=== PATIENT | male | born 1955 ===

== ENCOUNTER 2022-04-11 00:44 | Inpatient (IN) ==
[2022-04-11] MEDS ORDERED: Lactated Ringers 1000 ml BAG 1,000 ML IV ONE (03:55)
[2022-04-11 05:40] LABS: ABS Lymphocytes 2.5 10^3/ul (1.0-4.8); ABS Monocytes 0.9 10^3/ul (0-0.8); ABS Neutrophils 7.8 10^3/ul (1.5-7.7); Eosinophil % 0.1 %; Hematocrit 43 % (42-52); Hemoglobin 14.2 g/dL (14.0-18.0); Lymphocyte % 22.4 %; Mean Corpuscular HGB Conc 33 g/dL (31-36); Mean Corpuscular Hemoglobin 30 pg (27-31); Mean Corpuscular Volume 92 fL (80-94); Mean Platelet Volume 9.3 fL (7.4-10.4); Nucleated Red Blood Cells % 0.1; Platelet Count 153 10^3/uL (150-450); Red Blood Count 4.69 10^6 /uL (4.18-5.48); Red Cell Distribution Width 15 % (10-15); White Blood Count 11.2 10^3/uL (3.5-10.8)
[2022-04-11 06:08] LABS: Calcium 8.8 mg/dL (8.6-10.3); Magnesium 2.2 mg/dL (1.9-2.7); Potassium 4.1 mmol/L (3.5-5.0); eGFR CKD-EPI 22.3 (>60)
[2022-04-11] MEDS ORDERED: Heparin 5000 UNITS/ML 1 mL VIAL ONE (06:13)
[2022-04-11 06:20] LABS: TSH Ultra Thyroid Stim Horm 0.39 mcIU/mL (0.34-5.60)
[2022-04-11] MEDS ORDERED: Heparin 5000 UNITS/ML 1 mL VIAL IV SCH (07:00)
[2022-04-11] MEDS: Heparin DRIP 25,000 UNITS BAG 25,000 UNITS/500 ML BAG IV SCH (07:32)
[2022-04-11] MEDS: Aspirin EC 81 mg TAB.EC (enteric coated) PO SCH (08:17)
[2022-04-11] MEDS ORDERED: Heparin 5000 UNITS/ML 1 mL VIAL SUBCUT SCH (09:00)
[2022-04-11] MEDS ORDERED: .Amiodarone 24HR ONLY IV Protocol Order Note IV ONE (11:37)
[2022-04-11] MEDS ORDERED: Amiodarone 360 MG IVPREMIX 360 MG/200 ML BAG IV SCH (11:50)
[2022-04-11 12:54] LABS: Urine Appearance Clear; Urine Bilirubin Negative (Negative); Urine Blood Negative (Negative); Urine Color Yellow; Urine Glucose Negative (Negative); Urine Ketones Trace (Negative); Urine Nitrite Negative (Negative); Urine Protein Negative (Negative); Urine Specific Gravity 1.016 (1.002-1.030); Urine Urobilinogen Negative (Negative)
[2022-04-11 14:20] LABS: High Sensitivity Troponin 1 Hr 3386 pg/mL (<20)
[2022-04-11] MEDS: Heparin 5000 UNITS/ML 1 mL VIAL IV SCH ×2 (14:40→22:00)
[2022-04-11 14:44] LABS: Urine Creatinine Concentration 130.04 mg/dL
[2022-04-11] MEDS: Amiodarone 360 MG IVPREMIX 360 MG/200 ML BAG IV SCH (18:44)
[2022-04-12] MEDS: Heparin DRIP 25,000 UNITS BAG 25,000 UNITS/500 ML BAG IV SCH ×3 (01:01→19:35)
[2022-04-12 04:07] LABS: ABS Eosinophils 0.1 10^3/ul (0-0.6); ABS Lymphocytes 1.6 10^3/ul (1.0-4.8); ABS Monocytes 0.8 10^3/ul (0-0.8); ABS Neutrophils 6.8 10^3/ul (1.5-7.7); Hematocrit 40 % (42-52); Hemoglobin 13.6 g/dL (14.0-18.0); Lymphocyte % 16.9 %; Mean Corpuscular HGB Conc 34 g/dL (31-36); Mean Corpuscular Hemoglobin 31 pg (27-31); Mean Corpuscular Volume 91 fL (80-94); Mean Platelet Volume 8.9 fL (7.4-10.4); Nucleated Red Blood Cells % 0.1; Platelet Count 134 10^3/uL (150-450); Red Blood Count 4.42 10^6 /uL (4.18-5.48); Red Cell Distribution Width 15 % (10-15); White Blood Count 9.3 10^3/uL (3.5-10.8)
[2022-04-12 04:26] LABS: Calcium 8.1 mg/dL (8.6-10.3); HDL Cholesterol 25.5 mg/dL; Potassium 3.8 mmol/L (3.5-5.0); eGFR CKD-EPI 42.7 (>60)
[2022-04-12] MEDS: Amiodarone 360 MG IVPREMIX 360 MG/200 ML BAG IV SCH (06:31)
[2022-04-12] MEDS ORDERED: Potassium Chlor 20 meq TAB.ER PO ONE (07:11)
[2022-04-12] MEDS: Aspirin EC 81 mg TAB.EC (enteric coated) PO SCH (09:33)
[2022-04-12] MEDS: Heparin 5000 UNITS/ML 1 mL VIAL IV SCH (15:13)
[2022-04-13 05:46] LABS: ABS Eosinophils 0.2 10^3/ul (0-0.6); ABS Lymphocytes 1.6 10^3/ul (1.0-4.8); ABS Monocytes 0.6 10^3/ul (0-0.8); ABS Neutrophils 4.4 10^3/ul (1.5-7.7); Eosinophil % 3.2 %; Hematocrit 41 % (42-52); Hemoglobin 14.3 g/dL (14.0-18.0); Lymphocyte % 23.1 %; Mean Corpuscular HGB Conc 35 g/dL (31-36); Mean Corpuscular Hemoglobin 31 pg (27-31); Mean Corpuscular Volume 91 fL (80-94); Mean Platelet Volume 8.7 fL (7.4-10.4); Nucleated Red Blood Cells % 0.1; Platelet Count 130 10^3/uL (150-450); Red Blood Count 4.55 10^6 /uL (4.18-5.48); Red Cell Distribution Width 14 % (10-15); White Blood Count 6.9 10^3/uL (3.5-10.8)
[2022-04-13] MEDS ORDERED: Levothyroxine 100 MCG/5 ML VIAL IV SCH (06:00)
[2022-04-13 06:57] LABS: Calcium 8.4 mg/dL (8.6-10.3); Magnesium 2.1 mg/dL (1.9-2.7); eGFR CKD-EPI 49.4 (>60)
[2022-04-13] MEDS: Aspirin EC 81 mg TAB.EC (enteric coated) PO SCH ×2 (08:33→09:04)
[2022-04-13] MEDS ORDERED: Midazolam 5 mg/5 ml VIAL 1 mg/ml 5 ml VIAL (5 mg) ONE (10:02)
[2022-04-13] MEDS ORDERED: fentaNYL 100 mcg/2 ml 50 MCG/ML VIAL ONE (10:02)
[2022-04-13] MEDS ORDERED: Heparin 1,000 UNIT/ML 10 ml (10,000 UNITS) CATHLAB/DIALYSIS ONE (10:03)
[2022-04-13] MEDS ORDERED: Heparin 2 UNITS/ML 1000 mls 2,000 ML IV ONE (10:03)
[2022-04-13] MEDS ORDERED: VERAPAMIL 2.5 MG/ML 2 ML VIAL ** 5 mg/2 ml ONE (10:03)
[2022-04-13] MEDS ORDERED: Iohexol 350 (CONTRAST) 100 ML PAK IV ONE ×3 (10:03→11:42)
[2022-04-13] MEDS ORDERED: Lidocaine 1% MPF 5 ML VIAL ONE ×2 (10:03→10:57)
[2022-04-13] MEDS ORDERED: nitroGLYCERIN DRIP 25,000 MCG/250 ML BTL ONE (10:03)
[2022-04-13] MEDS ORDERED: Heparin 2 UNITS/ML 1000 mls 1,000 ML IV ONE (10:59)
[2022-04-13] MEDS ORDERED: Furosemide 20 mg/2 ml IV VIAL IV ONE (12:33)
[2022-04-14 05:11] LABS: ABS Eosinophils 0.2 10^3/ul (0-0.6); ABS Lymphocytes 1.7 10^3/ul (1.0-4.8); ABS Monocytes 0.8 10^3/ul (0-0.8); ABS Neutrophils 5.3 10^3/ul (1.5-7.7); Eosinophil % 2.7 %; Hematocrit 44 % (42-52); Hemoglobin 14.8 g/dL (14.0-18.0); Lymphocyte % 20.7 %; Mean Corpuscular HGB Conc 34 g/dL (31-36); Mean Corpuscular Hemoglobin 31 pg (27-31); Mean Corpuscular Volume 91 fL (80-94); Mean Platelet Volume 8.4 fL (7.4-10.4); Nucleated Red Blood Cells % 0.1; Platelet Count 156 10^3/uL (150-450); Red Cell Distribution Width 14 % (10-15); White Blood Count 8.1 10^3/uL (3.5-10.8)
[2022-04-14 05:17] LABS: INR 1.09 (0.89-1.11)
[2022-04-14 05:54] LABS: Calcium 8.4 mg/dL (8.6-10.3); HDL Cholesterol 26.7 mg/dL; Magnesium 2.1 mg/dL (1.9-2.7); Potassium 4.1 mmol/L (3.5-5.0); eGFR CKD-EPI 48.2 (>60)
[2022-04-14] MEDS: Aspirin EC 81 mg TAB.EC (enteric coated) PO SCH (07:58)
[2022-04-14] MEDS ORDERED: ceFAZolin VIAL 1 GM in NS 0.9% 50 ML 50 ML IVPB ONE (14:30)
[2022-04-14] MEDS ORDERED: NS 0.9% 1000 ml BAG 1,000 ML IV SCH (14:30)
[2022-04-14] MEDS ORDERED: ceFAZolin 2 GM PREMIX 2 GM/50 ML BAG IVPB ONE (15:00)
[2022-04-14] MEDS ORDERED: ceFAZolin 1 GM/10 ML flush SYRINGE for pocket flush (cardiology) FLUSH ONE (15:00)
[2022-04-14] MEDS ORDERED: fentaNYL 100 mcg/2 ml 50 MCG/ML VIAL ONE (15:54)
[2022-04-14] MEDS ORDERED: Lidocaine 1% VIAL 10 MG/ML VIAL ONE (15:54)
[2022-04-14] MEDS ORDERED: Midazolam 5 mg/5 ml VIAL 1 mg/ml 5 ml VIAL (5 mg) ONE (15:54)
[2022-04-14] MEDS ORDERED: ceFAZolin VIAL 1 GM in NS 0.9% 50 ML 50 ML IVPB SCH (18:00)
[2022-04-15] MEDS: ceFAZolin 1 GM X 3 DOSES POST-OP Q8H (AddVan) IVPB SCH ×2 (00:15→09:16)
[2022-04-15] MEDS ORDERED: Enoxaparin 40 MG/0.4 ML SYR SUBCUT SCH (02:00)
[2022-04-15 06:38] LABS: ABS Eosinophils 0.3 10^3/ul (0-0.6); ABS Lymphocytes 1.9 10^3/ul (1.0-4.8); ABS Monocytes 0.9 10^3/ul (0-0.8); ABS Neutrophils 6.1 10^3/ul (1.5-7.7); Eosinophil % 2.9 %; Hematocrit 46 % (42-52); Hemoglobin 15.4 g/dL (14.0-18.0); Lymphocyte % 20.6 %; Mean Corpuscular HGB Conc 34 g/dL (31-36); Mean Corpuscular Hemoglobin 31 pg (27-31); Mean Corpuscular Volume 91 fL (80-94); Mean Platelet Volume 8.6 fL (7.4-10.4); Nucleated Red Blood Cells % 0.1; Platelet Count 155 10^3/uL (150-450); Red Cell Distribution Width 14 % (10-15); White Blood Count 9.2 10^3/uL (3.5-10.8)
[2022-04-15 06:43] LABS: Activated Partial Thrombo Time 29.7 seconds (26.0-38.0); INR 1.1 (0.89-1.11)
[2022-04-15 06:52] LABS: eGFR CKD-EPI 50.9 (>60)
[2022-04-15] MEDS ORDERED: Heparin 5000 UNITS/ML 1 mL VIAL SUBCUT SCH (09:00)
[2022-04-15] MEDS: Aspirin EC 81 mg TAB.EC (enteric coated) PO SCH (09:14)
[2022-04-15 14:43] VITALS: BP 130/85
== END 2022-04-15 16:00 | disposition home or self-care (01) | DRG 171 ==
LOC: EDBD → ICU 03:29 → MEDTELE 04-14 20:32
PROVIDERS: ADMIT Student in an Organized Health Care Education/Training Program; ATTEND Student in an Organized Health Care Education/Training Program